=== PATIENT | female | born 1965 | race Caucasian/White ===

== ENCOUNTER 2019-02-23 18:00 | Emergency (ER) | payer BC ==
[~2019-02-23] VITALS: Ht 157.5 cm; Wt 67.2 kg
[2019-02-23 19:41] LABS: CLARITY,URINE SLIGHTLY CLOUDY (Clear); COLOR,URINE AMBER (Yellow); GLUCOSE, URINE NEGATIVE (Neg); KETONES,URINE NEGATIVE (Neg); LEUKOCYTE ESTERASE ,URINE TRACE (Neg); NITRITES, URINE NEGATIVE (Neg); OCCULT BLOOD,URINE LARGE (Neg); PH,URINE 5.5 (4.8-8.0); PROTEIN,URINE 100 mg/dl (Neg); UROBILINOGEN,URINE 0.2 E.U/dL (0.2-1.0)
[2019-02-23 19:49] VITALS: BP 155/74
[2019-02-23 19:50] LABS: UA COLLECTION TYPE CLN CATCH MIDSTREAM
[2019-02-23] MEDS ORDERED: cephalexin 250mg capsule PO ONE (20:05)
[2019-02-23 20:09] LABS: AMORPHOUS URATES 2+; BACTERIA,URINE FEW /HPF (Neg); CAL OXALATE CRYSTALS 1+ /HPF (NEGATIVE); MUCUS STRANDS FEW /LPF (Neg); RBC,URINE TNTC /HPF (0-2); SQUAMOUS EPITHELIAL CELL,UR FEW /LPF (FEW); WBC,URINE 0-4 /HPF (0-4)
[2019-02-23] MEDS ORDERED: CEPH500C5 PO (20:52)
== END 2019-02-23 21:01 | disposition home or self-care (01) ==
LOC: ER 18:01
DX: R31.9 Hematuria, unspecified (principal); F17.200 Nicotine dependence, unspecified, uncomplicated; Z88.8 Allergy status to other drugs, medicaments and biological substances; Z90.710 Acquired absence of both cervix and uterus; Z79.2 Long term (current) use of antibiotics
CPT/HCPCS: 81001; 87088; 99283